=== PATIENT | male | born 1950 | race Caucasian/White ===

== ENCOUNTER 2019-01-31 12:08 | Day surgery (SDC) | payer MEDICARE, SELFPAY | END 2019-01-31 16:55 | disposition home or self-care (01) | PROVIDERS: Family Provider Nurse Practitioner Family; Visit Provider Surgery | DX: K40.30 Unilateral inguinal hernia, with obstruction, without gangrene, not specified as recurrent (principal); N40.1 Benign prostatic hyperplasia with lower urinary tract symptoms; N13.8 Other obstructive and reflux uropathy; Z87.891 Personal history of nicotine dependence; Z79.82 Long term (current) use of aspirin | CPT/HCPCS: 49650; 93005; J0690; J1100; J2001; J2405; J2704; J2710; J3010 ×2; J3490 ×2 ==

== ENCOUNTER 2019-08-01 08:44 | Day surgery (SDC) | payer MEDICARE, SELFPAY ==
[2019-07-31 12:32] VITALS: BMI 26.6
[2019-08-01 09:08] VITALS: BP 116/73; PULSE 64; RESP 18; TEMP 36.6; O2SAT 98
[2019-08-01] MEDS: sodium chloride 0.9% 1,000 ML 30 ML IV (09:25)
--- NOTE | 2019-08-01 09:39 | ANES.PREANE2 ---
Pre-Anesthetic Assessment Pre-Anesthetic Assessment: Height/Weight: Height 1.78 m Weight 84.368 kg Temp Pulse Resp BP Pulse Ox 98 F 64 18 116/73 98 08/01/19 09:08 08/01/19 09:08 08/01/19 09:08 08/01/19 09:08 08/01/19 09:08 Preop Diagnosis: Subcutaneous mass left upper back Proposed Procedure: Operation Date: 08/01/19 10:45 Proposed Procedures p Excision of Lipoma From Left Shoulder 18644 D17.20(Left) - Wilmer Carver MD Last intake: Intake Last Liquid Date 08/01/19 Last Liquid Time 04:00 Last Solid Date 07/31/19 Last Solid Time 18:30 Social: Packs per day: 2 Pack years: 50 Comment: quit 30 Exam: Pre-Anes Outpt Exam: alert and oriented x 3 Airway: Submandibular: WNL Cervical ROM: WNL MP: 2 Dentition: Partials Additional comments: very poor : Comments: BPH Musc/skel: Musc/skel: Lower Back Pain Comments: nonradiating Anesthetic Plan: ASA status: II Anesthesia: MAC Meds/Allergies Current Medications: Current Medications Generic Name Dose Route Start Last Admin Trade Name Freq PRN Reason Stop Dose Admin Sodium Chloride 1,000 mls @ 30 ml s/hr 08/01/19 09:00 08/01/19 09:25 Sodium Chloride 0.9% IV 08/02/19 08:59 30 mls/hr .Q24H GILMAR Administration PFSH Anesthesia PFSH: Social History Smoking and tobacco status: former smoker Alcohol intake: never Household members: spouse Marital status: Current occupational status: employed History of recent travel: No Data Anesthesia Cardiac Studies: No Data to Display
[2019-08-01] MEDS: lidocaine 1% INJ 20 mL SUBCUT (10:04)
[2019-08-01 10:55] VITALS: BP 113/71; PULSE 60; RESP 18; TEMP 37.2; O2SAT 97
[2019-08-01 11:20] VITALS: BP 107/64; PULSE 60; RESP 18; TEMP 36.6; O2SAT 96
--- NOTE | 2019-08-01 12:34 | PM.OP ---
Operative Report Date of procedure: August 01, 2019 Pre-op Diagnosis: Subcutaneous mass left upper back Post-op diagnosis: same Procedure Done: Excision of mass left upper back Pathology: Mass left upper back Surgeon: Wilmer Carver Anesthesia: MAC Condition: stable Disposition: same day Procedure: The patient was taken to the operating room and placed in left lateral position under MAC. The area around the palpable mass on the left upper back was prepped and draped in a sterile manner. 1% lidocaine with 0.5% Marcaine was infiltrated around the palpable mass. A 3 cm incision was made, subcutaneous tissue was divided using electrocautery and the lipoma was dissected free from the surrounding subcutaneous tissue and underlying fascia and excised without difficulty. Hemostasis was ensured with electrocautery and subcutaneous tissues were approximated using running 3-0 Vicryl suture and skin was closed using running subcuticular 4-0 Monocryl suture and Dermabond.
--- NOTE | 2019-08-11 12:36 | W.PM.OPSUD ---
Surgery/Procedure H&P Update DATE OF PROCEDURE: 2019 DATE H&P PERFORMED: 07/30/19 H&P UPDATE INFORMATION: H&P completed within last 30 days and No changes to prior documentation PREOP DIAGNOSIS: Subcutaneous mass left upper back PLANNED PROCEDURE: Operation Date: 08/01/19 10:45 Proposed Procedures p Excision of Lipoma From Left Shoulder 83121 D17.20(Left) - Wilmer Carver MD
== END 2019-08-01 11:40 | disposition home or self-care (01) ==
PROVIDERS: Family Provider Nurse Practitioner Family; PCP Physician Assistant Medical; Visit Provider Surgery
PROC: (CPT 11403; principal; 2019-08-01 10:35)
DX: D17.39 Benign lipomatous neoplasm of skin and subcutaneous tissue of other sites (principal); N40.0 Benign prostatic hyperplasia without lower urinary tract symptoms; Z87.891 Personal history of nicotine dependence; Z79.82 Long term (current) use of aspirin
CPT/HCPCS: 11403; 12032; 12345; 88304; 88305; 88309; J2001; J2250; J3010; J3490; J7030

== ENCOUNTER → 2020-05-06 14:14 | Outpatient (BNVA) | payer MEDICARE, SELFPAY | PROVIDERS: Family Provider Nurse Practitioner Family; PCP Physician Assistant Medical; Visit Provider Urology | DX: R97.20 Elevated prostate specific antigen [PSA] (principal); N40.1 Benign prostatic hyperplasia with lower urinary tract symptoms; N13.8 Other obstructive and reflux uropathy | CPT/HCPCS: 81003; 84153 ==

== ENCOUNTER → 2021-05-06 14:03 | Outpatient (BNVA) | payer MEDICARE, SELFPAY | PROVIDERS: Family Provider Nurse Practitioner Family; PCP Physician Assistant Medical; Visit Provider Urology | DX: N40.1 Benign prostatic hyperplasia with lower urinary tract symptoms (principal); R97.20 Elevated prostate specific antigen [PSA] | CPT/HCPCS: 81003; 84153 ==

== ENCOUNTER → 2022-05-06 08:41 | Outpatient (BNVA) | payer MEDICARE, SELFPAY | PROVIDERS: Family Provider Nurse Practitioner Family; PCP Physician Assistant Medical; Visit Provider Urology | DX: N40.1 Benign prostatic hyperplasia with lower urinary tract symptoms (principal); R97.20 Elevated prostate specific antigen [PSA] | CPT/HCPCS: 51741; 51798; 81003; 99213 ==

== ENCOUNTER → 2022-06-02 08:50 | Outpatient (BNVA) | payer MEDICARE, SELFPAY | PROVIDERS: Family Provider Nurse Practitioner Family; PCP Physician Assistant Medical; Visit Provider Nurse Practitioner Family | DX: N40.1 Benign prostatic hyperplasia with lower urinary tract symptoms (principal); R97.20 Elevated prostate specific antigen [PSA]; K63.5 Polyp of colon; Z76.89 Persons encountering health services in other specified circumstances | CPT/HCPCS: 80053; 84153; 85025 ==

== ENCOUNTER → 2022-06-29 08:55 | Outpatient (BNVA) | payer MEDICARE, SELFPAY | PROVIDERS: Family Provider Nurse Practitioner Family; PCP Physician Assistant Medical; Visit Provider Surgery | DX: K63.5 Polyp of colon (principal); K40.91 Unilateral inguinal hernia, without obstruction or gangrene, recurrent | CPT/HCPCS: 99213 ==

== ENCOUNTER 2022-06-30 08:44 | Day surgery (SDC) | payer MEDICARE, SELFPAY ==
[2022-06-29 11:47] VITALS: BMI 25.8
[2022-06-30 09:21] VITALS: BP 128/80; PULSE 60; RESP 18; TEMP 36.6; O2SAT 99
[2022-06-30] MEDS: sodium chloride 0.9% 1,000 ML 30 ML IV (09:31)
--- NOTE | 2022-06-30 10:07 | W.PM.OPSUD ---
Surgery/Procedure H&P Update DATE OF PROCEDURE: June 30, 2022 DATE H&P PERFORMED: 06/29/22 PREOP DIAGNOSIS: history of colon polyps PLANNED PROCEDURE: Operation Date: 06/30/22 11:00 Proposed Procedures p Colonoscopy 37009,Z12.11(Not Applicable) - Victor Hugo Kimble DO
--- NOTE | 2022-06-30 10:10 | ANES.PREANE2 ---
Pre-Anesthetic Assessment Height/Weight: Height 1.75 m Weight 79.379 kg Temp Pulse Resp BP Pulse Ox O2 Del Method 97.8 F 60 18 128/80 99 06/30/22 09:21 06/30/22 09:21 06/30/22 09:21 06/30/22 09:21 06/30/22 09:21 06/30/22 09:21 Preop Diagnosis: history of colon polyps Operation Date: 06/30/22 11:00 Proposed Procedures p Colonoscopy 34526,Z12.11(Not Applicable) - Victor Hugo Kimble, DO Was Beta Tony taken within 24 hours: N/A Was Clonidine taken within 24 hours: N/A Last intake: Intake Last Liquid Date 06/30/22 Last Liquid Time 07:00 Last Solid Date 06/29/22 Last Solid Time 10:30 Social No alcohol and No tobacco Exam alert, oriented x 3, clear to auscultation bilaterally and regular rate & rhythm Airway Submandibular: within normal limits Cervical ROM: within normal limits Mallampati: Class II Comments: Comments: upper and low partials History/ROS No significant history except as noted and No significant complaints Pulmonary None reported CV/HEM None reported None reported Hepatic None reported GI None reported Metabolic None reported Musc/skel Lower Back Pain Neuropsych None reported Anesthetic Plan ASA status: 2 Anesthesia: Anesthesia Evaluation and MAC Risk of > 500 ml blood loss (7ml/kg in children): No Medications/Allergies Home Medications Medication Instructions Recorded Confirmed Last Taken Type aspirin 81 mg tablet,delayed 81 mg PO QDAY 07/27/19 06/29/22 06/29/22 History release (Adult Low Dose Aspirin) naproxen sodium 220 mg capsule 220 mg PO .COMPLEX PRN Pain 07/27/19 06/30/22 07/25/19 History (Aleve) tamsulosin 0.4 mg capsule 0.8 mg PO DAILY #200 caps 05/06/22 06/29/22 06/28/22 Rx Allergies Allergy/AdvReac Type Severity Reaction Status Date / Time No Known Allergies Allergy Verified 06/29/22 11:45 Current Medications Generic Name Dose Route Start Last Admin Trade Name Freq PRN Reason Stop Dose Admin Sodium Chloride 1,000 mls @ 30 mls/hr 06/30/22 09:00 06/30/22 09:31 Sodium Chloride 0.9% IV 07/01/22 08:59 30 mls/hr .Q24H GILMAR Administration PFSH Anesthesia Medical History Acrodermatitis BPH loc w urin obs/LUTS Elevated PSA Migraine with aura Recurrent right inguinal hernia Urolithiasis Surgical History History of hernia repair (01/31/19) Laparoscopic total extraperitoneal repair of right inguinal hernia with UltraPro mesh measuring 15 x 10 cm History of surgery on arm Right tendon repair History of tonsillectomy History of vasectomy Status post colonoscopy Family History Father , AT AGE 68 PROSTATE Cancer Mother No problems noted. Denies family history of Anesthesia complication Bleeding disorder Social History Smoking and tobacco status: former smoker Alcohol intake: never Household members: spouse Marital status: Current occupational status: employed History of recent travel: No Data Anesthesia Cardiac Studies: No Data to Display
[2022-06-30 10:50] VITALS: BP 115/63; PULSE 50; RESP 14; TEMP 36.1; O2SAT 98
[2022-06-30 10:59] VITALS: BP 115/70; PULSE 50; RESP 18; O2SAT 98
--- NOTE | 2022-06-30 17:32 | ANE.PACU2 ---
Inpatient post-anesthesia follow up: Airway intact: Yes Vital signs: Temperature 97.0 F Pulse Rate 50 Respiratory Rate 18 Blood Pressure 115/70 Pulse Oximetry 98 Oxygen Delivery Me thod Room Air Oxygen Flow Rate Fraction of Inspir ed Oxygen Hydration adequate: Yes Nausea and vomiting: No Pain level: 1 Mental status: Baseline
== END 2022-06-30 11:20 | disposition home or self-care (01) ==
PROVIDERS: PCP Nurse Practitioner Family; Visit Provider Surgery
PROC: 0DJD8ZZ Inspection of Lower Intestinal Tract, Via Natural or Artificial Opening Endoscopic (ICD-10-PCS; CPT 45378; principal; 2022-06-30 11:00)
DX: Z12.11 Encounter for screening for malignant neoplasm of colon (principal); Z86.010 Personal history of colon polyps; K57.30 Diverticulosis of large intestine without perforation or abscess without bleeding; N40.1 Benign prostatic hyperplasia with lower urinary tract symptoms; N13.8 Other obstructive and reflux uropathy; Z87.891 Personal history of nicotine dependence
CPT/HCPCS: G0121; J2704; J7030

== ENCOUNTER → 2023-10-12 10:36 | Outpatient (BNVA) | payer MEDICARE, SELFPAY | PROVIDERS: PCP Nurse Practitioner Family; Visit Provider Nurse Practitioner Family | DX: N40.1 Benign prostatic hyperplasia with lower urinary tract symptoms (principal); R97.20 Elevated prostate specific antigen [PSA]; K40.91 Unilateral inguinal hernia, without obstruction or gangrene, recurrent; H69.90 Unspecified Eustachian tube disorder, unspecified ear; Z12.5 Encounter for screening for malignant neoplasm of prostate | CPT/HCPCS: 80053; 85025; G0103 ==

== ENCOUNTER → 2023-10-21 10:01 | Outpatient (BNVA) | payer MEDICARE, SELFPAY | PROVIDERS: PCP Nurse Practitioner Family; Visit Provider Nurse Practitioner Family | DX: E87.5 Hyperkalemia (principal) | CPT/HCPCS: 80053 ==

== ENCOUNTER → 2025-01-21 09:10 | Outpatient (BNVA) | payer MEDICARE, SELFPAY | PROVIDERS: PCP Nurse Practitioner Family; Visit Provider Nurse Practitioner Family | DX: R91.8 Other nonspecific abnormal finding of lung field (principal) | CPT/HCPCS: 71046 ==

== ENCOUNTER → 2025-01-28 09:55 | Outpatient (BNVA) | payer MEDICARE, SELFPAY | PROVIDERS: PCP Nurse Practitioner Family; Visit Provider Nurse Practitioner Family | DX: J18.9 Pneumonia, unspecified organism (principal); I77.810 Thoracic aortic ectasia | CPT/HCPCS: 71046 ==